=== PATIENT | male | born 1980 | race African-American/Black ===

== ENCOUNTER 2016-10-17 16:00 | Inpatient (IN) | payer OTHER ==
[~2016-10-17] VITALS: Ht 180.3 cm; Wt 72.6 kg
--- NOTE | ~2016-10-17 | PN ---
Unit #: [id number] #: [id number] Patient: NILA DENNIS [id number] [facility] [address] [place] [address] [id number] MR#: [id number] NAME: NILA DENNIS ROOM: P212 Age: 36 Sex: M Admission Date: 10/17/2016 : 1980 Attending Physician: Marcleo Mack M.D. Admitting Physician: Marcelo Mack M.D. Primary Care Physician: Primary Care Physician April PACK PROGRESS NOTES DATE 10/19/2016 DISCUSSION Mr. Dennis is a 36-year-old, male who was seen today and chart was reviewed and case was discussed with the staff. He has been anxious, withdrawn and rather seclusive to himself and reports some persistent depressive symptoms. Meanwhile, he has been taking medication and tolerating them fairly well with no reported side effects. MENTAL STATUS EXAM Young male who was casually dressed with fair personal hygiene, appears to be in no acute distress or discomfort. He was awake and alert on interaction with intact orientation. His mood was anxious with congruent affect. His speech was slow and goal directed. He denies any suicidal or homicidal ideation. His insight and judgement remains slightly impaired. TREATMENT PLAN 1. We will continue him on his current medications and treatment protocol. We will monitor his response to the medication and make further adjustments as needed. 2. We will continue to follow up. Dictated by... Ciara Carrillo/kvng TD: 10/20/2016 03:42 JOB #: [id number] Unit #: [id number] #: [id number] Patient: NILA DENNIS PROGRESS NOTES Page 1 of 1 X Marcelo Mack MD PROGRESS NOTE
--- NOTE | ~2016-10-17 | DS ---
Unit #: [id number] #: [id number] Patient: NILA DENNIS [id number] [facility] [address] [place] [address] [id number] MR#: [id number] NAME: NILA DENNIS ROOM: [facility] Age: 36 Sex: M Admission Date: 10/17/2016 : 1980 Discharge Date: 10/21/2016 Attending Physician: Marcelo Mack M.D. Primary Care Physician: Primary Care Physician No DISCHARGE SUMMARY IDENTIFICATION DATA Mr. Dennis is a 36-year-old single male who is a resident of [place], [place], and was self-referred to the hospital and was accompanied by his uncle. DISCHARGE DIAGNOSES PSYCHIATRIC: Major depressive disorder, recurrent, moderate, without psychotic features. Alcohol dependence, moderate, in acute withdrawal. Cannabis abuse, moderate. Cocaine abuse, moderate. MEDICAL: Narcolepsy. STRESSORS: Moderate psychosocial stressors. HISTORY OF PRESENT ILLNESS Same as in initial psychiatric evaluation. PAST PSYCHIATRIC HISTORY Same as in initial psychiatric evaluation. PAST MEDICAL HISTORY Same as in initial psychiatric evaluation. HOSPITAL COURSE The patient was [facility] and was oriented to the hospital environment. Routine p.r.n. medications were initiated, and he was started back on his home medications, and medications were adjusted, and he was closely monitored, and detox protocol was maintained. He was taking the medications regularly and was tolerating them fairly well and was able to come out of the detox without any complications and was wanting to go home and was willing to continue treatment on outpatient basis. As such, it was decided that he will be discharged home. We will continue treatment on outpatient basis. DISCHARGE MEDICATIONS None. CONDITION AT DISCHARGE Stable. PROGNOSIS Fair. Unit #: [id number] #: [id number] Patient: NILA DENNIS Dictated by... Marcelo Mack M.D. IAA/bzg TD: 10/22/2016 07:52 JOB #: [id number] DISCHARGE SUMMARY Page 1 of 1 X Marcelo Mack MD X DISCHARGE SUMMARY
--- NOTE | ~2016-10-17 | PA ---
Unit #: [id number] #: [id number] Patient: NILA DENNIS [id number] [facility] [address] [place] [address] [id number] MR#: [id number] NAME: NILA DENNIS ROOM: P212 Age: 36 Sex: M Admission Date: 10/17/2016 : 1980 Date of Assessment: 10/18/2016 Attending Physician: Marcelo Mack M.D. Admitting Physician: Marcelo Mack M.D. Primary Care Physician: Primary Care Physician No PSYCHIATRIC ASSESSMENT DATE OF SERVICE 10/18/2016. IDENTIFYING DATA Mr. Dennis is a 36-year-old single -Cymraes male, who is a resident of [place], [place], and was self-referred to the hospital and was accompanied by his uncle. CHIEF COMPLAINT "I was walking toward the bridge today with a plan to jump off." HISTORY OF PRESENT ILLNESS Mr. Dennis is a 36-year-old -Cymraes male with history of mood disorder, who was brought to the hospital stating that he was walking toward the bridge today with a plan to jump off and stated that something told him to do so and that he has been drinking a lot and his last drink was 5 hours ago. He stated that he has been increasingly depressed and his drinking has increased for the past 2 weeks and he also has been using a combination of crack cocaine and marijuana. He reports that he is from [place] and he is homeless currently and occasionally stays with the mother of his child, but she is bipolar and is the major trigger for him and stated that he has lost housing three times due to "too much stuff going on in my head." He does endorse increasing depression, anxiety, irritability, restlessness, feelings of hopelessness and helplessness, and suicidal ideation and as such, recommendation for inpatient level of care for safety and stabilization was made and the patient was stepped up to the inpatient unit. SUBSTANCE ABUSE HISTORY The patient reports history of alcohol, cannabis, and cocaine abuse, and reports that he has been using all of them on regular basis. PAST PSYCHIATRIC HISTORY The patient has not had any prior inpatient or outpatient psychiatric treatment. Review of the medical records indicate currently he is not active in any treatment program, is not seeing a psychiatrist, and is not taking any psychotropic medications. PAST MEDICAL HISTORY Narcolepsy. ALLERGIES No known medication allergies. Unit #: [id number] #: [id number] Patient: NILA DENNIS CURRENT MEDICATIONS None. PERSONAL AND SOCIAL HISTORY A 36-year-old -Cymraes male, who reports that he is single, unemployed, and essentially homeless and has poor social support system. MENTAL STATUS EXAMINATION Young -Cymraes male who was casually dressed with fair personal hygiene appears to be in no acute distress or discomfort. He was awake and alert on interaction with intact orientation to time, place, and person. His mood was anxious and depressed with a congruent affect. His speech was slow and restricted in content. He reports having suicidal ideation, but denies any homicidal ideations and also denies any auditory or visual hallucinations. His insight and judgment remain significantly impaired. DIAGNOSTIC IMPRESSION Psychiatric: Major depressive disorder, recurrent, moderate, without psychotic features; alcohol dependence, moderate and acute withdrawals; cannabis abuse, moderate; cocaine abuse, moderate. Medical: Narcolepsy. Stressors: Moderate psychosocial stressors. TREATMENT PLAN 1. The patient has presented with history of mood disorder and substance abuse and has been decompensating and will need inpatient hospitalization for safety and stabilization. We will start him back on his home medications. We will adjust the medications and monitor response. 2. Supportive therapy was provided to the patient. 3. Safe, structured, and nourishing environment will be provided. ESTIMATED LENGTH OF STAY 5 to 7 days. ABILITY TO HELP SELF Limited. WILLINGNESS TO HELP SELF The patient appears to be willing to help self. STRENGTHS 1. Communicative. 2. Cooperative. PROBLEMS 1. Chronic dysphoric symptoms. 2. Chronic chemical dependency. 3. Poor social support system. DISCHARGE CRITERIA This will be contingent upon the patient's ability to show resolution of his depression and anxiety and his ability to stay safe and sober, particularly after discharge from the hospital. Dictated by... Unit #: [id number] #: [id number] Patient: NILA DENNIS Ciara Carrillo/altagracia TD: 10/18/2016 13:36 JOB #: [id number] PSYCHIATRIC ASSESSMENT Page 1 of 1 X Marcelo Mack A MD X PSYCHIATRIC ASSESSMENT
--- NOTE | ~2016-10-17 | HP ---
Unit #: [id number] #: [id number] Patient: NILA MAZA [id number] [facility] [address] [place] [address] [id number] MR#: [id number] NAME: NILA MAZA ROOM: P212 Age: 36 Sex: M Admission Date: 10/17/2016 : 1980 Attending Physician: Marcelo Mack M.D. Admitting Physician: Marcelo Mack M.D. Primary Care Physician: Primary Care Physician No HISTORY AND PHYSICAL HISTORY OF PRESENT ILLNESS The patient is a 36-year-old male admitted to [address] [place] [address] on 10/17/2016 for suicidal ideations and alcohol abuse. PAST MEDICAL HISTORY Narcolepsy. PAST SURGICAL HISTORY The patient denies. 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 He is homeless. He smokes 1 1/2 packs of cigarettes daily, uses alcohol, marijuana and cocaine on a daily basis. FAMILY MEDICAL HISTORY Noncontributory. ALLERGIES No known drug allergies. CURRENT MEDICATIONS The patient is not on any home medications. REVIEW OF SYSTEMS CONSTITUTIONAL: No fever or chills. HEENT: Denies any sore throat, ear pain or runny nose. CARDIOVASCULAR: Denies chest pain, irregular heart rhythm or palpitations. CHEST: Denies shortness of breath or cough. No hemoptysis. GASTROINTESTINAL: Denies nausea, vomiting, diarrhea or chronic constipation. ENDOCRINE: Denies history of increased thirst or urination. No recent significant weight loss or gain. GENITOURINARY: Denies dysuria, frequency, or hematuria. SKIN: Denies any rashes. HEMATOLOGIC: Denies history of increased bleeding or bruising. MUSCULOSKELETAL: Denies any hot, swollen joints. No generalized muscle pain. NEUROLOGIC: He complains of tingling in his face that he believes is related to Trazodone use. PHYSICAL EXAM GENERAL: He is awake, alert and oriented in no acute distress. VITAL SIGNS: Temperature 98.7, heart rate 70, respiration 18, blood Unit #: [id number] #: [id number] Patient: NILA MAZA pressure 115/80. HEIGHT: 5'11". WEIGHT: 160 pounds. SKIN: Warm and dry without rash or lesion. HEENT: Normocephalic. TMs not viewed. Oral and nasal passages clear. Conjunctivae clear. PERRLA. EOMs intact. NECK: Supple without lymphadenopathy or thyromegaly. HEART: Regular rate and rhythm without murmur. LUNGS: Clear. ABDOMEN: Soft, nontender. : Not done. EXTREMITIES: No evidence of cyanosis, clubbing or edema. Moves all without focal deficit. NEUROLOGICAL: Grossly within normal limits. Cranial Nerves: II: Visual muse are intact. III, IV AND : Extraocular movements are intact. Pupils are equal, round and reactive to light. V: Facial sensation is grossly normal. VII: Facial movements and expression are normal. VIII: Auditory acuity grossly intact. IX, X: Uvula is midline. Phonation is normal. XI: Patient shrugs shoulders and turns head normally. XII: Tongue protrudes in the midline. Sensory and Motor Function: Sensory and motor sensation is grossly normal. Motor: moves all extremities well. IMPRESSION 1. Psychiatric admission. 2. Narcolepsy. 3. Tingling in the face. RECOMMENDATIONS Psychiatric per psychiatrist. MEDICAL: No contraindication to participate in facility activities. MEDICAL PROGNOSIS Good. MEDICAL CONDITION Stable. Dictated by... Elis Iqbal/kvng TD: 10/19/2016 01:15 JOB #: [id number] Unit #: [id number] #: [id number] Patient: NILA MAZA HISTORY AND PHYSICAL Page 1 of 1 X JACKIE DANIELLE APRN HISTORY AND PHYSICAL
--- NOTE | ~2016-10-17 | PN ---
Unit #: [id number] #: [id number] Patient: NILA DENNIS [id number] [facility] [address] [place] [address] [id number] MR#: [id number] NAME: NILA DENNIS ROOM: P212 Age: 36 Sex: M Admission Date: 10/17/2016 : 1980 Attending Physician: Marcelo Mack M.D. Admitting Physician: Marcelo Mack M.D. Primary Care Physician: Primary Care Physician April PACK PROGRESS NOTES DATE OF SERVICE: 10/20/2016 SUBJECTIVE Mr. Dennis is a 36-year-old male, who was seen today and chart was reviewed and the case was discussed with the staff. He has been anxious, withdrawn, and rather seclusive to himself. He has been complaining of nasal congestion and difficulty breathing and sinus headaches. MENTAL STATUS EXAMINATION Young male, who was casually dressed with fair personal hygiene, appears to be in no acute distress or discomfort. He was awake and alert with impaired attention and concentration. His mood was anxious with a congruent affect. His speech was slow and goal directed. He denies any suicidal or homicidal ideations. His insight and judgment remain slightly impaired. TREATMENT PLAN 1. We will continue him on his current medications and treatment protocol. We will monitor his response to the medications and make further adjustments as needed. 2. We will continue to follow up. Dictated by... Ciara Carrillo/altagracia TD: 10/20/2016 14:01 JOB #: [id number] [facility] PROGRESS NOTES Page 1 of 1 X Marcelo Mack MD PROGRESS NOTE
[2016-10-18 10:53] LABS: URINE APPEARANCE CLEAR; URINE BILIRUBIN NEG (NEG); URINE BLOOD NEG (NEG); URINE COLOR YELLOW; URINE GLUCOSE NEG (NEG); URINE KETONE NEG (NEG); URINE LEUKOCYTE ESTERASE TRACE (NEG); URINE NITRATE NEG (NEG); URINE PROTEIN NEG (NEG); URINE SPECIFIC GRAVITY 1.018 (1.003-1.035); URINE UROBILINOGEN 0.2 MG/DL (NEG)
[2016-10-18 10:55] LABS: URBCS1 AUWI 0-2 /[HPF] (0-2); URINE BACTERIA AUWI NEG (NEGATIVE); URINE SQUAMOUS EPITHELIAL CELL NONE SEEN /[HPF]
[2016-10-18 11:12] LABS: BASOPHIL% 0.7 % (0-2.5); EOSINOPHIL# 0.1 X10e3 (0-0.7); EOSINOPHIL% 1.8 % (0.0-7.0); HEMATOCRIT 41.9 % (38.0-50.0); HEMOGLOBIN 13.6 gm/dL (13.0-16.0); LYMPHOCYTE# 1.7 X10e3 (1.0-3.5); LYMPHOCYTE% 38.5 % (17.0-45.0); MEAN CELL VOLUME 81.4 FL (83-96); MEAN CORPUSCULAR HEMOGLOBIN 26.4 PG (28-34); MEAN CORPUSCULAR HGB CONC 32.4 g/dL (30-36); MEAN PLATELET VOLUME 9.4 FL (6.5-11.5); MONOCYTE# 0.4 X10e3 (0-1.0); NEUTROPHIL# 2.3 X10e3 (1.5-7.1); PLATELET COUNT 141 X10e3 (140-420); RED BLOOD COUNT 5.14 X10e (3.90-5.60); RED CELL DISTRIBUTION WIDTH 14.6 % (11.0-15.5); WHITE BLOOD COUNT 4.5 X10e3 (4.0-10.5)
[2016-10-18 11:22] LABS: AMPHETAMINE NEG (NEG); BARBITURATES NEG (NEG); BENZODIAZEPINES NEG (NEG); COCAINE POS (NEG); MARIJUANA NEG (NEG); OPIATES NEG (NEG); TRICYCLIC ANTIDEPRESSANTS NEG (NEG); U METHADONE NEG (NEG)
[2016-10-18 11:49] LABS: DIFF IND NO
[2016-10-18 11:50] LABS: ALBUMIN SERUM 3.6 g/dL (3.5-5.0); BILIRUBIN,TOTAL 0.9 mg/dL (0.2-2.0); CALCIUM SERUM 8.8 mg/dL (8.4-10.2); CREATININE SERUM 1.2 mg/dL (0.6-1.4); POTASSIUM 4.1 mmol/L (3.5-5.1); PROTEIN TOTAL SERUM 6.2 g/dL (6.0-8.3)
== END 2016-10-21 10:01 | disposition home or self-care (01) | DRG 885 ==
LOC: P2S 18:40
PROVIDERS: Psychiatry & Neurology Psychiatry
DX: F33.1 Major depressive disorder, recurrent, moderate (principal); F10.239 Alcohol dependence with withdrawal, unspecified; F12.10 Cannabis abuse, uncomplicated; F14.10 Cocaine abuse, uncomplicated; T14.91 Suicide attempt; G47.419 Narcolepsy without cataplexy
CPT/HCPCS: 80053; 80307; 81003; 85025; 86592